=== PATIENT | male | born 1940 | race Caucasian/White ===

== ENCOUNTER 2021-03-03 09:15 | Inpatient (IN) ==
[2021-03-03] MEDS ORDERED: 0.9 % Sodium Chloride 1,000 ML ONE ×2 (09:36→13:19)
[2021-03-03] MEDS ORDERED: *HR* FentaNYL (PF) 100 MCG/2 ML VIAL ONE (13:19)
[2021-03-03] MEDS ORDERED: *HR* Midazolam HCl 2 MG/2 ML VIAL ONE (13:19)
[2021-03-03] MEDS ORDERED: ISOVUE-370 200 ML INFUS..BTL ONE (13:20)
[2021-03-03] MEDS ORDERED: Heparin 1,000 UNITS/500 mL 500 ML ONE (13:20)
[2021-03-03] MEDS ORDERED: *HR* Heparin 10,000 UNIT/10 ML VIAL ONE (13:20)
[2021-03-03] MEDS ORDERED: Nitroglycerin 1,000 MCG/5 ML VIAL IV ONE (13:20)
[2021-03-03] MEDS: 0.9 % Sodium Chloride 1,000 ML IVC SCH (15:45)
[2021-03-04] MEDS: 0.9 % Sodium Chloride 1,000 ML IVC SCH (05:10)
[2021-03-04] MEDS: Chlorhexidine Rinse 15 ML MOUTHWASH MM SCH ×2 (06:28→19:23)
[2021-03-04] MEDS ORDERED: NiCARdipine 2.5 MG/10 ML Syringe IVPB ONE (06:34)
[2021-03-04] MEDS ORDERED: Dextrose 50 % in Water (Vial) 30 ML, Sodium Bicarbonate 20 MEQ, Lidocaine 1% 5 ML, Insu... TH ONE ×3 (07:45)
[2021-03-04] MEDS ORDERED: Dextrose 50 % in Water (Vial) 30 ML, Sodium Bicarbonate 20 MEQ, Potassium Chloride 15 M... TH ONE (07:45)
[2021-03-04] MEDS ORDERED: Heparin 15,000 UNIT in 0.9 % Sodium Chloride 500 ML IV ONE (07:45)
[2021-03-04] MEDS ORDERED: Norepinephrine 4 MG in 0.9 % Sodium Chloride 250 ML IVC PRN (07:45)
[2021-03-04 08:19] LABS: ABG Base Excess 2 mEq/L (-2 to 3); ABG Chloride 104 mEq/L (98-107); ABG Glucose 97 mg/dL (60-95); ABG HCO3 28 mEq/L (21-27); ABG Ionized Calcium 1.24 mmol/L (1.15-1.35); ABG Oxygen Saturation 100 % (95-98); ABG PCO2 48 mmHg (35-45); ABG PH 7.38 pH Units (7.32-7.45); ABG PO2 275 mmHg (85-104); ABG TCO2 30 mEq/L (20-26)
[2021-03-04] MEDS ORDERED: ceFAZolin 2,000 MG in Water for inj. (sterile) 20 ML IVP ONE (09:19)
[2021-03-04 09:38] LABS: ABG Base Excess 0 mEq/L (-2 to 3); ABG Chloride 106 mEq/L (98-107); ABG Glucose 172 mg/dL (60-95); ABG HCO3 28 mEq/L (21-27); ABG Ionized Calcium 1.25 mmol/L (1.15-1.35); ABG Oxygen Saturation 100 % (95-98); ABG PCO2 64 mmHg (35-45); ABG PH 7.25 pH Units (7.32-7.45); ABG PO2 200 mmHg (85-104); ABG TCO2 30 mEq/L (20-26)
[2021-03-04 10:08] LABS: ABG Base Excess 0 mEq/L (-2 to 3); ABG Chloride 100 mEq/L (98-107); ABG Glucose 230 mg/dL (60-95); ABG HCO3 27 mEq/L (21-27); ABG Ionized Calcium 0.97 mmol/L (1.15-1.35); ABG Oxygen Saturation 100 % (95-98); ABG PCO2 53 mmHg (35-45); ABG PH 7.31 pH Units (7.32-7.45); ABG PO2 273 mmHg (85-104); ABG TCO2 28 mEq/L (20-26)
[2021-03-04 10:43] LABS: ABG Base Excess 1 mEq/L (-2 to 3); ABG Chloride 102 mEq/L (98-107); ABG Glucose 174 mg/dL (60-95); ABG HCO3 25 mEq/L (21-27); ABG Ionized Calcium 1.01 mmol/L (1.15-1.35); ABG Oxygen Saturation 100 % (95-98); ABG PCO2 41 mmHg (35-45); ABG PO2 275 mmHg (85-104); ABG TCO2 27 mEq/L (20-26)
[2021-03-04] MEDS ORDERED: Acetaminophen 325 MG TABLET PO PRN (11:32)
[2021-03-04] MEDS ORDERED: Calcium Gluconate 1gm/50mL 1 GM/50 ML BAG IVPB PRN (11:32)
[2021-03-04] MEDS ORDERED: *HR* Dextrose 50 % in Water (Vial) 50 ML VIAL IVP PRN (11:32)
[2021-03-04] MEDS ORDERED: Acetaminophen 650 MG RECTAL SUPP RC PRN (11:32)
[2021-03-04] MEDS ORDERED: Ondansetron 4 MG/2 ML VIAL IVP PRN (11:32)
[2021-03-04] MEDS ORDERED: Potassium Chloride 40 MEQ/200 ML BAG IVPB PRN (11:32)
[2021-03-04] MEDS ORDERED: Insulin Regular, Human 100 UNIT/ML IV PRN (11:32)
[2021-03-04] MEDS ORDERED: Sennosides 8.6 MG TABLET PO PRN (11:32)
[2021-03-04 11:41] LABS: ABG Base Excess 1 mEq/L (-2 to 3); ABG Chloride 102 mEq/L (98-107); ABG Glucose 112 mg/dL (60-95); ABG HCO3 27 mEq/L (21-27); ABG Ionized Calcium 1.24 mmol/L (1.15-1.35); ABG Oxygen Saturation 100 % (95-98); ABG PCO2 46 mmHg (35-45); ABG PH 7.37 pH Units (7.32-7.45); ABG PO2 507 mmHg (85-104); ABG TCO2 28 mEq/L (20-26)
[2021-03-04 11:49] LABS: ABG Base Excess 2 mEq/L (-2 to 3); ABG Chloride 104 mEq/L (98-107); ABG Glucose 77 mg/dL (60-95); ABG HCO3 28 mEq/L (21-27); ABG Ionized Calcium 1.35 mmol/L (1.15-1.35); ABG Oxygen Saturation 99 % (95-98); ABG PCO2 52 mmHg (35-45); ABG PH 7.34 pH Units (7.32-7.45); ABG PO2 173 mmHg (85-104); ABG TCO2 30 mEq/L (20-26)
[2021-03-04 12:13] LABS: ABG Base Excess 2 mEq/L (-2 to 3); ABG HCO3 29 mEq/L (21-27); ABG Oxygen Saturation 99 % (95-98); ABG PCO2 56 mmHg (35-45); ABG PH 7.31 pH Units (7.32-7.45); ABG PO2 145 mmHg (85-104); ABG TCO2 30 mEq/L (20-26); Blood Gas Modality ASSIST CONTROL; Blood Gas VT 600 cc
[2021-03-04 12:22] LABS: Eosinophils % 1.8 %; Lymphocytes % 14.2 %; Mean Corpuscular HGB Conc 31.4 g/dL (31.6-35.5); Red Cell Distribution Width 13.3 % (11.5-14.5)
[2021-03-04 12:23] LABS: Basophils % 0.2 %; Eosinophils # 0.2 K/mcL (0.0-0.6); Hematocrit 32.2 % (37.5-50.1); Hemoglobin 10.1 g/dL (12.9-16.9); Immature Granulocytes % 0.5 % (0-4); Immature Platelets 4.8 % (1.1-6.1); Lymphocytes # 1.7 K/mcL (0.6-4.6); Mean Corpuscular Hemoglobin 29.3 pg (28.0-33.3); Mean Corpuscular Volume 93.3 fL (83.0-100.0); Mean Platelet Volume 10.4 fL (9.4-12.4); Monocytes # 0.7 K/mcL (0.0-1.3); Monocytes % 5.3 %; Neutrophils # 9.5 K/mcL (1.6-8.9); Platelet Count 103 K/mcL (140-400); Red Blood Count 3.45 M/mcL (4.19-5.50); White Blood Count 12.2 K/mcL (4.3-11.1)
[2021-03-04 12:30] LABS: INR 1.4; Prothrombin Time 15.9 Seconds (9.4-12.1)
[2021-03-04 12:33] LABS: Activated Partial Thrombo Time 35.9 Seconds (26.0-36.0)
[2021-03-04 12:44] LABS: BUN/Creatinine Ratio 24 (6-26); Blood Urea Nitrogen 24 mg/dL (8-23); Calcium 8.4 mg/dL (8.6-10.3); Carbon Dioxide 29 mEq/L (23-29); Chloride 108 mEq/L (98-107); Glucose 65 mg/dL (70-105); Magnesium 2.4 mg/dL (1.6-2.6); Osmolality,Calculated 292 (280-300); Potassium 3.7 mEq/L (3.5-5.1); Sodium 140 mEq/L (136-145); eGFR For African Americans > 60 (> 60); eGFR For Non-African Americans > 60 (> 60)
[2021-03-04] MEDS: niCARdipine 20 MG/200 ML MLS IVC SCH ×5 (13:00→23:06)
[2021-03-04] MEDS: Pantoprazole 40 MG VIAL IVP SCH ×2 (13:15→17:16)
[2021-03-04] MEDS: 0.9 % Sodium Chloride w KCl 20 MEQ/1,000 ML MLS IVC SCH (13:20)
[2021-03-04] MEDS: Metoclopramide 10 MG/2 ML VIAL IVP SCH ×3 (13:25→23:05)
[2021-03-04] MEDS ORDERED: Mannitol 25% vial 12.5 GM/50 ML VIAL IVPB ONE (13:26)
[2021-03-04] MEDS ORDERED: Tranexamic Acid 1,000 MG/10 ML VIAL IR ONE (13:26)
[2021-03-04] MEDS ORDERED: Lidocaine 2% Syringe 100 MG/5 ML IVP ONE (13:26)
[2021-03-04] MEDS ORDERED: Albumin Human 25% 25 GM/100 ML IV.SOLN IVPB ONE (13:26)
[2021-03-04] MEDS ORDERED: *HR* Heparin 10,000 UNIT/10 ML VIAL IR ONE (13:26)
[2021-03-04] MEDS ORDERED: *HR* Magnesium Sulfate 2 GM/50 ML PIGGYBACK IVPB ONE (13:26)
[2021-03-04] MEDS ORDERED: *HR* Phenylephrine 10 MG/ML VIAL IVC ONE (13:26)
[2021-03-04] MEDS: *HR* FentaNYL (PF) 100 MCG/2 ML VIAL IVP PRN ×2 (13:36→19:22)
[2021-03-04] MEDS: *HR* OxyCODONE/APAP 5/325 TABLET PO PRN (15:33)
[2021-03-04] MEDS: CEFAZOLIN IVPB SCH ×2 (15:33→23:05)
[2021-03-04 16:23] LABS: ABG Base Excess 0 mEq/L (-2 to 3); ABG HCO3 27 mEq/L (21-27); ABG Oxygen Saturation 95 % (95-98); ABG PCO2 54 mmHg (35-45); ABG PH 7.31 pH Units (7.32-7.45); ABG PO2 86 mmHg (85-104); ABG TCO2 29 mEq/L (20-26)
[2021-03-04] MEDS: Norepinephrine 4 MG/254 ML IV.SOLN IVC SCH (16:35)
[2021-03-04 17:12] LABS: ABG Base Excess 0 mEq/L (-2 to 3); ABG HCO3 27 mEq/L (21-27); ABG Oxygen Saturation 95 % (95-98); ABG PCO2 50 mmHg (35-45); ABG PH 7.33 pH Units (7.32-7.45); ABG PO2 79 mmHg (85-104); ABG TCO2 28 mEq/L (20-26)
[2021-03-04] MEDS: Albumin Human 5% 12.5 GM/250 ML IV.SOLN IVPB PRN ×2 (17:14→21:16)
[2021-03-05] MEDS: *HR* OxyCODONE/APAP 5/325 TABLET PO PRN ×3 (00:39→19:42)
[2021-03-05] MEDS: Albumin Human 5% 12.5 GM/250 ML IV.SOLN IVPB PRN (02:28)
[2021-03-05] MEDS: *HR* FentaNYL (PF) 100 MCG/2 ML VIAL IVP PRN (02:30)
[2021-03-05 03:11] LABS: Basophils % 0.3 %; Hematocrit 31.1 % (37.5-50.1); Hemoglobin 9.9 g/dL (12.9-16.9); Immature Granulocytes % 0.6 % (0-4); Immature Platelets 6.9 % (1.1-6.1); Mean Corpuscular HGB Conc 31.8 g/dL (31.6-35.5); Mean Corpuscular Hemoglobin 29.6 pg (28.0-33.3); Mean Corpuscular Volume 92.8 fL (83.0-100.0); Mean Platelet Volume 11.2 fL (9.4-12.4); Monocytes # 0.6 K/mcL (0.0-1.3); Monocytes % 6.7 %; Platelet Count 110 K/mcL (140-400); Red Blood Count 3.35 M/mcL (4.19-5.50); Red Cell Distribution Width 13.5 % (11.5-14.5); Segmented Neutrophils % 81.4 %; White Blood Count 8.8 K/mcL (4.3-11.1)
[2021-03-05 03:13] LABS: Neutrophils # 7.2 K/mcL (1.6-8.9)
[2021-03-05 03:17] LABS: INR 1.3; Prothrombin Time 14.6 Seconds (9.4-12.1)
[2021-03-05 03:19] LABS: Activated Partial Thrombo Time 32.8 Seconds (26.0-36.0)
[2021-03-05 03:28] LABS: BUN/Creatinine Ratio 23 (6-26); Blood Urea Nitrogen 23 mg/dL (8-23); Calcium 7.8 mg/dL (8.6-10.3); Carbon Dioxide 25 mEq/L (23-29); Chloride 104 mEq/L (98-107); Glucose 130 mg/dL (70-105); Magnesium 1.7 mg/dL (1.6-2.6); Osmolality,Calculated 285 (280-300); Potassium 4.5 mEq/L (3.5-5.1); Sodium 135 mEq/L (136-145); eGFR For African Americans > 60 (> 60); eGFR For Non-African Americans > 60 (> 60)
[2021-03-05] MEDS: Metoclopramide 10 MG/2 ML VIAL IVP SCH ×4 (05:00→23:18)
[2021-03-05] MEDS: Furosemide 20 MG/2 ML VIAL IVP SCH ×2 (07:25→16:47)
[2021-03-05] MEDS: Aspirin Enteric Coated 81 MG Tablet PO SCH (07:25)
[2021-03-05] MEDS: Pantoprazole 40 MG VIAL IVP SCH (07:25)
[2021-03-05] MEDS: Chlorhexidine Rinse 15 ML MOUTHWASH MM SCH ×2 (07:25→20:03)
[2021-03-05] MEDS ORDERED: Amiodarone Premix 360 MG/200 ML BAG IVC ONE ×3 (08:05→13:39)
[2021-03-05] MEDS ORDERED: Amiodarone Premix 150 MG/100 ML BAG IVPB ONE ×3 (08:05→13:39)
[2021-03-05] MEDS ORDERED: Heparin 1,000 UNITS/500 mL 500 ML ONE (12:24)
[2021-03-05] MEDS ORDERED: D5% in Water 1,000 ML IVC PRN (12:51)
[2021-03-05] MEDS ORDERED: Dextrose Gel 15 GM/37.5 ML TUBE PO PRN ×2 (12:51)
[2021-03-05] MEDS ORDERED: *HR* Dextrose 50 % in Water (Vial) 50 ML VIAL IVP PRN (12:51)
[2021-03-05] MEDS ORDERED: Amiodarone Premix 360 MG/200 ML BAG IVC SCH (14:06)
[2021-03-05] MEDS: Amiodarone Premix 360 MG/200 ML BAG IVC SCH (14:38)
[2021-03-05] MEDS: Insulin LISPRO 300 UNITS/3 ML VIAL SUBQ SCH ×2 (16:48→20:02)
[2021-03-05 17:13] LABS: VBG Ionized Calcium 1.17 mmol/L (1.15-1.35)
[2021-03-05 18:18] LABS: BUN/Creatinine Ratio 20 (6-26); Blood Urea Nitrogen 25 mg/dL (8-23); Calcium 8.3 mg/dL (8.6-10.3); Carbon Dioxide 26 mEq/L (23-29); Chloride 100 mEq/L (98-107); Glucose 140 mg/dL (70-105); Magnesium 2.1 mg/dL (1.6-2.6); Osmolality,Calculated 285 (280-300); Potassium 4.2 mEq/L (3.5-5.1); Sodium 134 mEq/L (136-145); eGFR For African Americans > 60 (> 60); eGFR For Non-African Americans 57 (> 60)
[2021-03-05] MEDS: niCARdipine 20 MG/200 ML MLS IVC SCH ×3 (18:25→20:03)
[2021-03-05] MEDS: Norepinephrine 4 MG/254 ML IV.SOLN IVC SCH (18:26)
[2021-03-06] MEDS: Amiodarone Premix 360 MG/200 ML BAG IVC SCH ×2 (00:21→12:06)
[2021-03-06 02:38] LABS: Basophils % 0.3 %; Eosinophils % 0.7 %; Red Cell Distribution Width 13.5 % (11.5-14.5)
[2021-03-06 02:40] LABS: Eosinophils # 0.1 K/mcL (0.0-0.6); Hemoglobin 10.1 g/dL (12.9-16.9); Immature Granulocytes % 0.5 % (0-4); Immature Platelets 9.1 % (1.1-6.1); Lymphocytes # 1.7 K/mcL (0.6-4.6); Lymphocytes % 15.2 %; Mean Corpuscular HGB Conc 32.6 g/dL (31.6-35.5); Mean Corpuscular Hemoglobin 29.9 pg (28.0-33.3); Mean Corpuscular Volume 91.7 fL (83.0-100.0); Mean Platelet Volume 11.4 fL (9.4-12.4); Monocytes # 0.8 K/mcL (0.0-1.3); Monocytes % 7.4 %; Neutrophils # 8.4 K/mcL (1.6-8.9); Nucleated Red Blood Cells 0.2 /100 WBC (0); Platelet Count 114 K/mcL (140-400); Red Blood Count 3.38 M/mcL (4.19-5.50); Segmented Neutrophils % 75.9 %; White Blood Count 11.1 K/mcL (4.3-11.1)
[2021-03-06 03:02] LABS: BUN/Creatinine Ratio 22 (6-26); Blood Urea Nitrogen 25 mg/dL (8-23); Calcium 8.3 mg/dL (8.6-10.3); Carbon Dioxide 27 mEq/L (23-29); Chloride 98 mEq/L (98-107); Glucose 171 mg/dL (70-105); Osmolality,Calculated 286 (280-300); Sodium 134 mEq/L (136-145); eGFR For African Americans > 60 (> 60); eGFR For Non-African Americans > 60 (> 60)
[2021-03-06] MEDS: Metoclopramide 10 MG/2 ML VIAL IVP SCH ×3 (05:01→17:14)
[2021-03-06] MEDS: niCARdipine 20 MG/200 ML MLS IVC SCH ×4 (08:01→20:20)
[2021-03-06] MEDS: Aspirin Enteric Coated 81 MG Tablet PO SCH (08:04)
[2021-03-06] MEDS: Insulin LISPRO 300 UNITS/3 ML VIAL SUBQ SCH ×4 (08:04→20:26)
[2021-03-06] MEDS: Furosemide 20 MG/2 ML VIAL IVP SCH ×2 (08:04→17:15)
[2021-03-06] MEDS: Chlorhexidine Rinse 15 ML MOUTHWASH MM SCH ×2 (08:05→20:25)
[2021-03-06] MEDS: Norepinephrine 4 MG/254 ML IV.SOLN IVC SCH (11:06)
[2021-03-06] MEDS: *HR* Amiodarone 200 MG TABLET PO SCH ×2 (13:01→20:24)
[2021-03-06] MEDS ORDERED: Calcium Gluconate 1gm/50mL 1 GM/50 ML BAG IVPB PRN (21:14)
[2021-03-06] MEDS ORDERED: *HR* OxyCODONE/APAP 5/325 TABLET PO PRN (21:14)
[2021-03-06] MEDS ORDERED: *HR* Dextrose 50 % in Water (Vial) 50 ML VIAL IVP PRN (21:14)
[2021-03-06] MEDS ORDERED: Acetaminophen 325 MG TABLET PO PRN (21:14)
[2021-03-06] MEDS ORDERED: Potassium Chloride 40 MEQ/200 ML BAG IVPB PRN (21:14)
[2021-03-06] MEDS ORDERED: Dextrose Gel 15 GM/37.5 ML TUBE PO PRN ×2 (21:14)
[2021-03-06] MEDS ORDERED: D5% in Water 1,000 ML IVC PRN (21:14)
[2021-03-06] MEDS ORDERED: Sennosides 8.6 MG TABLET PO PRN (21:14)
[2021-03-07 03:57] LABS: Basophils % 0.2 %; Eosinophils # 0.1 K/mcL (0.0-0.6); Eosinophils % 0.5 %; Hematocrit 28.3 % (37.5-50.1); Hemoglobin 9.1 g/dL (12.9-16.9); Immature Granulocytes % 0.5 % (0-4); Lymphocytes # 1.4 K/mcL (0.6-4.6); Lymphocytes % 13.5 %; Mean Corpuscular HGB Conc 32.2 g/dL (31.6-35.5); Mean Corpuscular Hemoglobin 29.4 pg (28.0-33.3); Mean Corpuscular Volume 91.3 fL (83.0-100.0); Mean Platelet Volume 11.6 fL (9.4-12.4); Monocytes # 0.8 K/mcL (0.0-1.3); Monocytes % 7.9 %; Neutrophils # 8.3 K/mcL (1.6-8.9); Platelet Count 109 K/mcL (140-400); Red Cell Distribution Width 13.4 % (11.5-14.5); Segmented Neutrophils % 77.4 %; White Blood Count 10.7 K/mcL (4.3-11.1)
[2021-03-07 04:12] LABS: BUN/Creatinine Ratio 27 (6-26); Blood Urea Nitrogen 25 mg/dL (8-23); Calcium 6.8 mg/dL (8.6-10.3); Carbon Dioxide 26 mEq/L (23-29); Chloride 105 mEq/L (98-107); Glucose 146 mg/dL (70-105); Magnesium 1.7 mg/dL (1.6-2.6); Osmolality,Calculated 291 (280-300); Potassium 3.1 mEq/L (3.5-5.1); Sodium 137 mEq/L (136-145); eGFR For African Americans > 60 (> 60); eGFR For Non-African Americans > 60 (> 60)
[2021-03-07] MEDS ORDERED: Furosemide 20 MG/2 ML VIAL IVP SCH (08:00)
[2021-03-07] MEDS: Insulin LISPRO 300 UNITS/3 ML VIAL SUBQ SCH ×4 (08:24→20:12)
[2021-03-07] MEDS: Chlorhexidine Rinse 15 ML MOUTHWASH MM SCH ×2 (08:27→20:35)
[2021-03-07] MEDS: Pantoprazole 40 MG VIAL IVP SCH (08:28)
[2021-03-07] MEDS: Aspirin Enteric Coated 81 MG Tablet PO SCH (08:28)
[2021-03-07] MEDS: 0.9 % Sodium Chloride 1,000 ML IVC SCH (09:01)
[2021-03-07] MEDS: 0.9 % Sodium Chloride w KCl 20 MEQ/1,000 ML MLS IVC SCH (09:06)
[2021-03-07] MEDS: *HR* Amiodarone 200 MG TABLET PO SCH ×2 (09:55→20:35)
[2021-03-08 06:15] LABS: BUN/Creatinine Ratio 26 (6-26); Blood Urea Nitrogen 31 mg/dL (8-23); Calcium 8.5 mg/dL (8.6-10.3); Carbon Dioxide 28 mEq/L (23-29); Chloride 103 mEq/L (98-107); Glucose 110 mg/dL (70-105); Osmolality,Calculated 291 (280-300); Potassium 3.9 mEq/L (3.5-5.1); Sodium 137 mEq/L (136-145); eGFR For African Americans > 60 (> 60); eGFR For Non-African Americans > 60 (> 60)
[2021-03-08] MEDS: Aspirin Enteric Coated 81 MG Tablet PO SCH (09:34)
[2021-03-08] MEDS: Chlorhexidine Rinse 15 ML MOUTHWASH MM SCH ×2 (09:34→20:40)
[2021-03-08] MEDS: *HR* Amiodarone 200 MG TABLET PO SCH ×2 (09:34→20:40)
[2021-03-08] MEDS: Pantoprazole 40 MG VIAL IVP SCH (09:35)
[2021-03-08] MEDS: Insulin LISPRO 300 UNITS/3 ML VIAL SUBQ SCH ×4 (10:06→19:50)
[2021-03-09 07:12] VITALS: BP 101/58
[2021-03-09] MEDS: Insulin LISPRO 300 UNITS/3 ML VIAL SUBQ SCH (07:22)
[2021-03-09] MEDS: *HR* Amiodarone 200 MG TABLET PO SCH (07:27)
[2021-03-09] MEDS: Aspirin Enteric Coated 81 MG Tablet PO SCH (07:27)
[2021-03-09] MEDS: Chlorhexidine Rinse 15 ML MOUTHWASH MM SCH (07:27)
== END 2021-03-09 11:33 | disposition home or self-care (01) | DRG 234 ==
LOC: INVDIALAB 09:15 → 3BNU 15:27 → ICNU 03-04 09:12 → 2NNU 03-08 07:39
PROVIDERS: ADMIT Thoracic Surgery (Cardiothoracic Vascular Surgery); ATTEND Thoracic Surgery (Cardiothoracic Vascular Surgery)